=== PATIENT | female | born 1960 | race Caucasian/White ===

== ENCOUNTER 2018-02-13 17:53 | Emergency (ER) | payer BC ==
[2018-02-13] MEDS ORDERED: Sodium Chloride 0.9% 10 ML Syringe FLUSH PRN (18:22)
[2018-02-13] MEDS ORDERED: HYDROmorphone 0.5 MG/0.5 ML SYRINGE IVPUSH ONE (18:25)
[2018-02-13] MEDS ORDERED: Aspirin 81 MG Tab.Chew PO ONE (18:25)
[2018-02-13] MEDS ORDERED: Ondansetron 4 MG/2 ML SDV IVPUSH ONE (18:25)
[2018-02-13] MEDS ORDERED: Alum Hydrox/Mag Hydrox/Simeth 30 ML, Lidocaine 2% 15 ML PO ONE ×2 (18:25)
[2018-02-13] MEDS ORDERED: Nitroglycerin 0.4 MG Tab.SL SL PRN (18:30)
--- NOTE | 2018-02-13 19:02 | EDM.PDOC ---
ED HPI GENERAL MEDICAL PROBLEM - General Chief Complaint: Chest Pain Stated Complaint: TIGHTNESS IN CHEST/HARD BREATHING Time Seen by Provider: 02/13/18 18:14 Source of Information: Reports: Patient History Limitations: Reports: No Limitations - History of Present Illness INITIAL COMMENTS - FREE TEXT/NARRATIVE: Patient is a 57-year-old female presents ED complaining of substernal chest discomfort that started approximately 3:00 p.m. today while at work. 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 Discomfort is described as a chest tightness with some intermittent sharp discomfort noted. Currently rated a 6 out of 10. Pain radiates into the left side of her neck and into her back. Pain is constant with waxing waning noted. Pain is not worsened with palpation, taking deep breath, and/or with exertion. She has no prior history of similar symptoms. Denies any nausea, diaphoresis, tearing sensation to her chest or back, pain radiating down her legs,tingling to extremities, history of blood clot, coronary disease, diabetes , high cholesterol, and/or hypertension. Patients mother has heart disease. She is currently on no medications. Patient has never smoked. She does not drink and /or use recreational drugs. Caffeine use 2 cups of coffee daily. Of note at times patient states she feels her heart beat awkwardly and with coughing eliminates the sensation. Cough has been a chronic issue for her. No worsening symptoms noted. No fever, body aches, chills, or recent sick exposure. Chest Pain Score (Numeric/FACES): 6 - Related Data Allergies Allergy/AdvReac Type Severity Reaction Status Date / Time cephalexin Allergy Airway Verified 02/13/18 18:15 Tightness Home Meds: Home Meds . 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 ED EXAM, GENERAL - Physical Exam Exam: See Below Exam Limited By: No Limitations General Appearance: Alert, WD/WN, No Apparent Distress Ears: Hearing Grossly Normal Nose: Normal Inspection Throat/Mouth: Normal Voice, No Airway Compromise Neck: Normal Inspection, Supple Respiratory/Chest: No Respiratory Distress, Lungs Clear, Normal Breath Sounds, No Accessory Muscle Use, Chest Non-Tender Cardiovascular: Normal Peripheral Pulses, No Murmur, Bradycardia Peripheral Pulses: 4+: Radial (L), Radial (R) GI/Abdominal: Normal Bowel Sounds, Soft, Non-Tender, No Organomegaly, No Distention Extremities: Normal Inspection, Normal Range of Motion, Non-Tender, Normal Capillary Refill Neurological: Alert, Oriented, CN II-XII Intact, Normal Cognition, No Motor/ Sensory Deficits Psychiatric: Normal Affect, Normal Mood Skin Exam: Warm, Dry, Intact, Normal Color, No Rash Course - Vital Signs Last Recorded V/S: Last Vital Signs Temp 98.4 F 02/13/18 18:06 Pulse 51 L 02/13/18 18:06 Resp 16 02/13/18 18:06 BP 147/87 H 02/13/18 18:06 Pulse Ox 97 02/13/18 18:06 - Orders/Labs/Meds Orders: Active Orders 24 hr Category Date Time Status EKG 12 Lead [EKG Documentation Completion] [RC] STAT Care 02/13/18 21:57 Active EKG Documentation Completion [RC] STAT Care 02/13/18 18:22 Active Oxygen Therapy [RC] ASDIRECTED Care 02/13/18 18:22 Active Peripheral IV Care [RC] . DIRECTED Care 02/13/18 18:23 Active CXR [Chest 1V Frontal] [CR] Stat Exams 02/13/18 19:03 Taken Heparin Sodium/D5W [Heparin 25,000 Units in D5W 500 ML] Med 02/13/18 22:15 Active 25,000 units in 500 ml IV TITRATE Nitroglycerin [Nitrostat] Med 02/13/18 18:30 Active 0.4 mg SL Q5M PRN Nitroglycerin/D5W [Nitroglycerin 25 MG/D5W 250 ML] Med 02/13/18 22:45 Active 25 mg in 250 ml IV TITRATE Sodium Chloride 0.9% [Saline Flush] Med 02/13/18 18:22 Active 10 ml FLUSH ASDIRECTED PRN Peripheral IV Insertion Adult [OM.PC] Stat Oth 02/13/18 18:22 Ordered Medication Orders Heparin Sodium/Dextrose (Heparin 25,000 Units In D5w 500 Ml) 25,000 units in 500 mls @ 25.038 mls/hr IV TITRATE [place]; 12 UNITS/KG/HR PRN Reason: Protocol Last Admin: 02/13/18 22:13 Dose: 25.038 mls/hr Nitroglycerin/Dextrose (Nitroglycerin 25 Mg/D5w 250 Ml) 25 mg in 250 mls @ 1.8 mls/hr IV TITRATE [place]; 3 MCG/MIN PRN Reason: Protocol Last Admin: 02/13/18 22:41 Dose: 3 mcg/min, 1.8 mls/hr Nitroglycerin (Nitrostat) 0.4 mg SL Q5M PRN PRN Reason: Chest Pain Sodium Chloride (Saline Flush) 10 ml FLUSH ASDIRECTED PRN PRN Reason: Keep Vein Open Last Admin: 02/13/18 18:46 Dose: 10 ml Labs: Laboratory Tests 02/13/18 02/13/18 02/13/18 Range/Units 18:15 18:15 18:15 WBC 9.30 (3.98-10.04) K/mm3 RBC 4.09 (3.98-5.22) M/mm3 Hgb 12.4 (11.2-15.7) gm/L Hct 38.8 (34.1-44.9) % MCV 94.9 H (79.4-94.8) fl MCH 30.3 (25.6-32.2) pg MCHC 32.0 L (32.2-35.5) g/dl RDW Std Deviation 43.6 (36.4-46.3) fL Plt Count 256 (182-369) K/mm3 MPV 10.1 (9.4-12.3) fl Neutrophils % (Manual) 70 H (40-60) % Band Neutrophils % 1 (0-10) % Lymphocytes % (Manual) 25 (20-40) % Atypical Lymphs % 0 % Monocytes % (Manual) 2 (2-10) % Eosinophils % (Manual) 2 (0.7-5.8) % Basophils % (Manual) 0 L (0.1-1.2) Platelet Estimate Adequate Plt Morphology Comment Normal RBC Morph Comment Normal PT 10.1 (8.0-13.0) SECONDS INR 0.94 APTT 27 (22-36) SECONDS D-Dimer, Quantitative 0.47 (0.19-0.59) mg/L Sodium 140 (136-145) mEq/L Potassium 3.7 (3.5-5.1) mEq/L Chloride 105 (98-107) mEq/L Carbon Dioxide 27 (21-32) mEq/L Anion Gap 11.7 (5-15) BUN 18 (7-18) mg/dL Creatinine 1.0 (0.55-1.02) mg/dL Est Cr Clr Drug Dosing 55.18 mL/min Estimated GFR (MDRD) 57 (>60) mL/min BUN/Creatinine Ratio 18.0 (14-18) Glucose 99 (74-106) mg/dL Calcium 8.9 (8.5-10.1) mg/dL Total Bilirubin 0.2 (0.2-1.0) mg/dL AST 22 (15-37) U/L ALT 32 (14-59) U/L Alkaline Phosphatase 119 H (46-116) U/L Troponin I < 0.017 (0.00-0.056) ng/mL Total Protein 7.2 (6.4-8.2) g/dl Albumin 3.7 (3.4-5.0) g/dl Globulin 3.5 gm/dL Albumin/Globulin Ratio 1.1 (1-2) TSH 3rd Generation (0.358-3.74) uIU/mL 02/13/18 02/13/18 Range/Units 18:15 21:15 WBC (3.98-10.04) K/mm3 RBC (3.98-5.22) M/mm3 Hgb (11.2-15.7) gm/L Hct (34.1-44.9) % MCV (79.4-94.8) fl MCH (25.6-32.2) pg MCHC (32.2-35.5) g/dl RDW Std Deviation (36.4-46.3) fL Plt Count (182-369) K/mm3 MPV (9.4-12.3) fl Neutrophils % (Manual) (40-60) % Band Neutrophils % (0-10) % Lymphocytes % (Manual) (20-40) % Atypical Lymphs % % Monocytes % (Manual) (2-10) % Eosinophils % (Manual) (0.7-5.8) % Basophils % (Manual) (0.1-1.2) Platelet Estimate Plt Morphology Comment RBC Morph Comment PT (8.0-13.0) SECONDS INR APTT (22-36) SECONDS D-Dimer, Quantitative (0.19-0.59) mg/L Sodium (136-145) mEq/L Potassium (3.5-5.1) mEq/L Chloride (98-107) mEq/L Carbon Dioxide (21-32) mEq/L Anion Gap (5-15) BUN (7-18) mg/dL Creatinine (0.55-1.02) mg/dL Est Cr Clr Drug Dosing mL/min Estimated GFR (MDRD) (>60) mL/min BUN/Creatinine Ratio (14-18) Glucose (74-106) mg/dL Calcium (8.5-10.1) mg/dL Total Bilirubin (0.2-1.0) mg/dL AST (15-37) U/L ALT (14-59) U/L Alkaline Phosphatase (46-116) U/L Troponin I 0.094 H* (0.00-0.056) ng/mL Total Protein (6.4-8.2) g/dl Albumin (3.4-5.0) g/dl Globulin gm/dL Albumin/Globulin Ratio (1-2) TSH 3rd Generation 1.146 (0.358-3.74) uIU/mL Meds: Medications Generic Name Dose Route Start Last Admin Trade Name Freq PRN Reason Stop Dose Admin Heparin Sodium/Dextrose 25,000 units in 500 mls @ 25.038 mls/hr 02/13/18 22: 15 02/13/18 22:13 Heparin 25,000 Units In D5w 500 Ml IV 25.038 mls/hr TITRATE [place] Administration Protocol 12 UNITS/KG/HR Nitroglycerin/Dextrose 25 mg in 250 mls @ 1.8 mls/hr 02/13/18 22:45 02/13/18 22:41 Nitroglycerin 25 Mg/D5w 250 Ml IV 3 mcg/min TITRATE [place] 1.8 mls/hr Protocol Administration 3 MCG/MIN Nitroglycerin 0.4 mg 02/13/18 18:30 Nitrostat SL Q5M PRN Chest Pain Sodium Chloride 10 ml 02/13/18 18:22 02/13/18 18:46 Saline Flush FLUSH 10 ml ASDIRECTED PRN Administration Keep Vein Open Discontinued Medications Generic Name Dose Route Start Last Admin Trade Name Dougq PRN Reason Stop Dose Admin Aspirin 324 mg 02/13/18 18:25 02/13/18 18:43 Aspirin PO 02/13/18 18:26 324 mg ONETIME ONE Administration Al Hydroxide/Mg Hydroxide 30 0 ml 02/13/18 18:25 02/13/18 18:44 ml/ Lidocaine HCl 15 ml PO 02/13/18 18:26 45 ml ONETIME ONE Administration Hydromorphone HCl 0.5 mg 02/13/18 18:25 02/13/18 19:05 Dilaudid IVPUSH 02/13/18 18:26 Not Given ONETIME ONE Nitroglycerin/Dextrose 250 mls @ 1.8 mls/hr 02/13/18 22:30 Nitroglycerin 25 Mg/D5w 250 Ml IV TITRATE [place] Protocol 3 MCG/MIN Metoprolol Tartrate 25 mg 02/13/18 21:58 02/13/18 22:15 Lopressor PO 02/13/18 21:59 Not Given ONETIME ONE Ondansetron HCl 4 mg 02/13/18 18:25 02/13/18 19:05 Zofran IVPUSH 02/13/18 18:26 Not Given ONETIME ONE Simvastatin 20 mg 02/14/18 22:02 Zocor PO 02/14/18 22:03 ONETIME ONE Simvastatin 60 mg 02/13/18 22:27 02/13/18 22:37 Zocor PO 02/13/18 22:28 60 mg ONETIME ONE Administration - Re-Assessments/Exams Free Text/Narrative Re-Assessment/Exam: IV established. Ordered aspirin 324 mg by mouth, Dilaudid 0.5 mg IVP, GI cocktail, and also Zofran 4 mg IVP. Patient is a poor historian when trying to determine what type chest pain she is currently having. I have ordered nitroglycerin 0.4 mg sublingual. Initial labs and studies will include: CBC, chem 14, d-dimer, coag studies, TSH , troponin, EKG, and also chest x-ray one view. EKG sinus rhythm with flipped T waves in lead 3 and aVF. Chest x-ray impression: No acute findings noted. Final interpretation is pending. Reviewed with Dr. Butt. 02/13/18 19:29 Reassessment, patient has no more chest tightness. She is able to breathe freely with no discomfort. She only took the baby aspirin and also GI cocktail. She refused the Dilaudid and Zofran. I will obtain a second troponin. 02/13/18 2150 Per Nursing patients 2nd troponin 0.094. Patient has ruled in. Discussed results of the second troponin with the patient. She requests being transferred to [facility]. 2nd EKG Sinus Bradycardia at a rate of 49 with no specific change from previous EKG. Ordered heparin gtt and simvastin 80mg PO. Initially ordered metoprol 25mg PO. This was ordered in error. Cancelled she is bradycardic. 02/13/18 22:[address] Sanz [facility]. Requested admission to hospitalists. One call will call me back when available. [facility] is admitting additional patients as we speak. 02/13/18 22:26 Dr. Dawkins has called back and has accepted the patient. Patient will be admitted to the ICU for overflow. Requests Nitro Gtt Started. Ambulance has been called. Departure - Departure Time of Disposition: 21:54 Disposition: DC/Tfer to Acute Hospital 02 Reason for Transfer *Q: Other Condition: Good Clinical Impression: NSTEMI (non-ST elevated myocardial infarction) - My Orders Last 24 Hours: My Active Orders 02/13/18 18:22 EKG Documentation Completion [RC] STAT Oxygen Therapy [RC] ASDIRECTED Sodium Chloride 0.9% [Saline Flush] 10 ml FLUSH ASDIRECTED PRN Peripheral IV Insertion Adult [OM.PC] Stat 02/13/18 18:23 Peripheral IV Care [RC] . DIRECTED 02/13/18 18:30 Nitroglycerin [Nitrostat] 0.4 mg SL Q5M PRN 02/13/18 19:03 CXR [Chest 1V Frontal] [CR] Stat 02/13/18 21:57 EKG 12 Lead [EKG Documentation Completion] [RC] STAT 02/13/18 22:15 Heparin Sodium/D5W [Heparin 25,000 Units in D5W 500 ML] 25,000 units in 500 ml IV TITRATE 02/13/18 22:45 Nitroglycerin/D5W [Nitroglycerin 25 MG/D5W 250 ML] 25 mg in 250 ml IV TITRATE - Assessment/Plan Last 24 Hours: My Active Orders 02/13/18 18:22 EKG Documentation Completion [RC] STAT Oxygen Therapy [RC] ASDIRECTED Sodium Chloride 0.9% [Saline Flush] 10 ml FLUSH ASDIRECTED PRN Peripheral IV Insertion Adult [OM.PC] Stat 02/13/18 18:23 Peripheral IV Care [RC] . DIRECTED 02/13/18 18:30 Nitroglycerin [Nitrostat] 0.4 mg SL Q5M PRN 02/13/18 19:03 CXR [Chest 1V Frontal] [CR] Stat 02/13/18 21:57 EKG 12 Lead [EKG Documentation Completion] [RC] STAT 02/13/18 22:15 Heparin Sodium/D5W [Heparin 25,000 Units in D5W 500 ML] 25,000 units in 500 ml IV TITRATE 02/13/18 22:45 Nitroglycerin/D5W [Nitroglycerin 25 MG/D5W 250 ML] 25 mg in 250 ml IV TITRATE
[2018-02-13] MEDS ORDERED: Metoprolol Tartrate 50 MG Tab PO ONE (21:58)
[2018-02-13] MEDS ORDERED: Heparin Sodium/D5W 25,000 UNITS/500 ML BAG IV SCH (22:15)
[2018-02-13] MEDS ORDERED: Simvastatin 20 MG Tab PO ONE (22:27)
[2018-02-13] MEDS ORDERED: Nitroglycerin/D5W 250 ML IV SCH (22:30)
[2018-02-13] MEDS ORDERED: Nitroglycerin/D5W 25 MG/250 ML BOTTLE IV SCH (22:45)
--- NOTE | 2018-02-14 07:16 | CR ---
Chest: Portable view of the chest was obtained. Comparison: No prior study. Tortuous thoracic aorta is seen. Heart size is slightly prominent but accentuated from portable technique. Lungs are clear with no acute parenchymal change. Bony structures are grossly intact. Impression: 1. Incidental findings. Nothing acute is identified on portable chest x-ray. Diagnostic code #2
[2018-02-14] MEDS ORDERED: Simvastatin 20 MG Tab PO ONE (22:02)
== END 2018-02-13 23:20 ==
LOC: JD.ED 17:53
DX: I21.4 Non-ST elevation (NSTEMI) myocardial infarction (principal); Z88.1 Allergy status to other antibiotic agents
CPT/HCPCS: 36415; 71045; 80053; 84443; 84484; 85025; 85379; 85610; 85730; 93005; 96365; 96368; 99285; A9270; J1644; J7050; 93010